=== PATIENT | female | born 1955 | race Caucasian/White ===

== ENCOUNTER 2017-01-19 10:25 | Inpatient (IN) ==
[2017-01-19] MEDS ORDERED: TYLENOL PO PRN (10:48)
[2017-01-19] MEDS ORDERED: NITROSTAT SL PRN (10:48)
[2017-01-19] MEDS ORDERED: ATROPINE SULFATE PFS IVP PRN (10:48)
[2017-01-19] MEDS ORDERED: VISTARIL INJ IM PRN (10:48)
[2017-01-19 11:13] LABS: ABG BASE EXCESS -3 (-2.0-2.0); ABG HCO3 20 (22.0-26.0); ABG PCO2 26.5 mmHg (35-45); ABG PH 7.485 (7.35-7.45); ABG TCO2 21 (22.0-28.0)
[2017-01-19 11:20] LABS: BASOPHILS % (AUTO) 0.3 % (0.0-3.0); EOSINOPHILS # (AUTO) 0.1 K/ul (0.0-0.7); EOSINOPHILS % (AUTO) 0.6 % (0.0-7.0); HEMATOCRIT 43.3 % (37.0-47.0); HEMOGLOBIN 15.3 g/dl (12.0-16.0); IMMATURE GRANULOCYTE % (AUTO) 0.8 % (0.0-5.0); LYMPHOCYTES # (AUTO) 1.9 K/uL (0.60-3.4); LYMPHOCYTES % (AUTO) 18.3 (10.0-50.0); MEAN CORPUSCULAR HEMOGLOBIN 32.1 pg (27.0-31.0); MEAN CORPUSCULAR HGB CONC 35.3 (31.8-35.4); MEAN CORPUSCULAR VOLUME 90.8 fl (81.0-99.0); MONOCYTES # (AUTO) 1.8 K/uL (0.4-2.0); MONOCYTES % (AUTO) 17.2 (0-10); NEUTROPHILS # (AUTO) 6.5 K/ul (2.0-6.9); NEUTROPHILS % (AUTO) 62.8; PLATELET COUNT 259 10^3/uL (140-440); RED BLOOD COUNT 4.77 10^6/ul (4.20-5.40); WHITE BLOOD COUNT 10.31 K/ul (4.6-10.2)
[2017-01-19 11:47] LABS: ALANINE AMINOTRANSFERASE 15 U/L (12-78); ALBUMIN 4.1 g/dL (3.4-5.0); ALBUMIN/GLOBULIN RATIO 1.05; ALKALINE PHOSPHATASE 104 U/L (53-141); ANION GAP 19.2; ASPARTATE AMINO TRANSFERASE 17 U/L (15-37); BILIRUBIN,TOTAL 0.39 mg/dL (0.00-1.20); BLOOD UREA NITROGEN 10 mg/dL (7-18); CALCIUM 9.6 mg/dL (8.2-10.2); CARBON DIOXIDE 22 mmol/L (23-31); CHLORIDE 96 mmol/L (98-107); CREATINE KINASE 65 U/L; GLUCOSE 96 mg/dL (82-115); MYOGLOBIN 42 ng/ml; POTASSIUM 4.2 mmol/L (3.5-5.10); SODIUM 133 mmol/L (136-145)
[2017-01-19 11:53] VITALS: BMI 34.0
[2017-01-19] MEDS: LOVENOX SUBCUT SCH (12:02)
--- NOTE | 2017-01-19 12:10 | CT ---
EXAM: CT chest without contrast. HISTORY: Bronchitis. Shortness of air. COMPARISON: Chest radiograph 06/29/2012. TECHNIQUE: Multiple axial images of the chest were obtained without intravenous contrast. Images w ere reformatted in the sagittal and coronal planes. FINDINGS: Evaluation for lymphadenopathy is limited due to lack of intravenous contrast. Multiple mediastinal lymph nodes are present measuring up to 1 cm short axis in the pretracheal and subcarina l regions on axial images 24 and 29. Heart size is normal. Atherosclerotic calcifications present. No pericardial effusion identified. The lungs are clear save for calcified granulomatous changes and areas of subsegmental atelectasis o r scarring in the right upper lobe. No pleural effusion or pneumothorax identified. Limited images of the upper abdomen are unremarkable. Degenerative changes seen in the spine. IMPRESSION: 1. No acute abnormality within the chest. 2. Nonspecific mediastinal lymphadenopathy. Consider follow-up CT in 3 to 6 months. 3. Evidence of prior granulomatous disease.
[2017-01-19 12:16] LABS: BILIRUBIN,URINE Negative (NEGATIVE); KETONES,URINE Negative (NEGATIVE); LEUKOCYTE ESTERASE ,URINE Trace (NEGATIVE); NITRITE,URINE Negative (NEGATIVE); PH,URINE 6.5 (5-9); PROTEIN,URINE Negative (NEGATIVE); URINE, BLOOD Negative (NEGATIVE)
[2017-01-19 12:23] LABS: ADD URINE MICROSCOPIC YES
[2017-01-19] MEDS: SODIUM CHLORIDE 1,000 ML IV SCH (12:30)
[2017-01-19] MEDS: ROCEPHIN 1 GM in SODIUM CHLORIDE 100 ML IV SCH (12:30)
[2017-01-19] MEDS: SOLU-MEDROL 125 MG IVP SCH ×3 (12:43→21:26)
[2017-01-19] MEDS: ZITHROMAX 500 MG in SODIUM CHLORIDE 250 ML IV SCH (13:29)
[2017-01-19] MEDS: DUONEB NEB SCH ×2 (14:08→19:20)
[2017-01-19] MEDS: MORPHINE 4 MG/ML SYRINGE IVP PRN ×2 (14:24→21:24)
[2017-01-19 15:08] LABS: FLU INTERNAL QC INTERNAL QC VALID; RAPID FLU A NEGATIVE (NEGATIVE); RAPID FLU B NEGATIVE (NEGATIVE)
[2017-01-19] MEDS: GLUCOPHAGE PO SCH (16:54)
[2017-01-19 20:24] LABS: CREATINE KINASE 80 U/L; MYOGLOBIN 36 ng/ml
[2017-01-19] MEDS ORDERED: NON-FORMULARY MEDICATION (Simvastatin [Simvastatin] 20 MG) PO SCH ×22 (21:00)
[2017-01-19] MEDS: HUMULIN R SUBCUT PRN (21:04)
[2017-01-19] MEDS: ZOCOR PO SCH (21:04)
[2017-01-20 05:05] LABS: BASOPHILS % (AUTO) 0.1 % (0.0-3.0); HEMATOCRIT 41.3 % (37.0-47.0); HEMOGLOBIN 14.3 g/dl (12.0-16.0); IMMATURE GRANULOCYTE % (AUTO) 0.9 % (0.0-5.0); LYMPHOCYTES # (AUTO) 1.1 K/uL (0.60-3.4); LYMPHOCYTES % (AUTO) 14.6 (10.0-50.0); MEAN CORPUSCULAR HEMOGLOBIN 31.7 pg (27.0-31.0); MEAN CORPUSCULAR HGB CONC 34.6 (31.8-35.4); MEAN CORPUSCULAR VOLUME 91.6 fl (81.0-99.0); MONOCYTES # (AUTO) 0.3 K/uL (0.4-2.0); MONOCYTES % (AUTO) 4.2 (0-10); NEUTROPHILS % (AUTO) 80.2; PLATELET COUNT 263 10^3/uL (140-440); RED BLOOD COUNT 4.51 10^6/ul (4.20-5.40); WHITE BLOOD COUNT 7.45 K/ul (4.6-10.2)
[2017-01-20 05:28] LABS: ALBUMIN 3.7 g/dL (3.4-5.0); ANION GAP 16.5; BILIRUBIN,TOTAL 0.2 mg/dL (0.00-1.20); BUN/CREATININE RATIO 16.66; CALCIUM 9.3 mg/dL (8.2-10.2); CREATININE 0.84 mg/dL (0.60-1.30); POTASSIUM 4.5 mmol/L (3.5-5.10); TOTAL PROTEIN 7.4 g/dL (5.8-8.1)
[2017-01-20] MEDS: DUONEB NEB SCH ×4 (05:28→19:37)
[2017-01-20] MEDS: SOLU-MEDROL 125 MG IVP SCH ×3 (05:28→21:09)
[2017-01-20] MEDS: LASIX TAB PO SCH (05:31)
[2017-01-20] MEDS: MORPHINE 4 MG/ML SYRINGE IVP PRN ×4 (05:38→23:28)
[2017-01-20] MEDS: HUMULIN R SUBCUT PRN ×2 (05:58→21:29)
[2017-01-20] MEDS ORDERED: NON-FORMULARY MEDICATION (Buspirone Hcl [Buspirone Hcl] 5 MG) PO SCH (09:00)
[2017-01-20] MEDS ORDERED: LASIX ONE (09:50)
[2017-01-20] MEDS ORDERED: LASIX IVP STA (09:53)
[2017-01-20] MEDS: SPIRIVA IH SCH (09:54)
[2017-01-20] MEDS: ROCEPHIN 1 GM in SODIUM CHLORIDE 100 ML IV SCH (09:55)
[2017-01-20] MEDS: GLUCOPHAGE PO SCH ×2 (09:58→17:04)
[2017-01-20] MEDS: LOVENOX SUBCUT SCH (09:58)
[2017-01-20] MEDS: ZESTRIL PO SCH (09:58)
[2017-01-20] MEDS: ASPIRIN EC PO SCH (09:58)
[2017-01-20] MEDS: TENORMIN PO SCH (09:58)
[2017-01-20] MEDS: BUSPAR PO SCH (09:59)
[2017-01-20] MEDS: IMIPRAMINE HCL 10 MG PO SCH (10:00)
[2017-01-20] MEDS: SODIUM CHLORIDE 1,000 ML IV SCH (10:25)
[2017-01-20] MEDS: ZITHROMAX 500 MG in SODIUM CHLORIDE 250 ML IV SCH (11:00)
[2017-01-20] MEDS: ZOCOR PO SCH (21:08)
[2017-01-21 04:48] LABS: BASOPHILS % (AUTO) 0.1 % (0.0-3.0); HEMATOCRIT 38.5 % (37.0-47.0); HEMOGLOBIN 13.3 g/dl (12.0-16.0); LYMPHOCYTES # (AUTO) 1.4 K/uL (0.60-3.4); LYMPHOCYTES % (AUTO) 9.3 (10.0-50.0); MEAN CORPUSCULAR HEMOGLOBIN 31.7 pg (27.0-31.0); MEAN CORPUSCULAR HGB CONC 34.5 (31.8-35.4); MEAN CORPUSCULAR VOLUME 91.9 fl (81.0-99.0); MONOCYTES # (AUTO) 0.8 K/uL (0.4-2.0); MONOCYTES % (AUTO) 5.3 (0-10); NEUTROPHILS # (AUTO) 12.3 K/ul (2.0-6.9); NEUTROPHILS % (AUTO) 84.3; PLATELET COUNT 276 10^3/uL (140-440); RED BLOOD COUNT 4.19 10^6/ul (4.20-5.40); WHITE BLOOD COUNT 14.56 K/ul (4.6-10.2)
[2017-01-21] MEDS: DUONEB NEB SCH ×4 (05:06→20:50)
[2017-01-21 05:16] LABS: ALBUMIN 3.5 g/dL (3.4-5.0); ALBUMIN/GLOBULIN RATIO 1.17; ANION GAP 13.2; BILIRUBIN,TOTAL 0.16 mg/dL (0.00-1.20); BUN/CREATININE RATIO 15.73; CALCIUM 8.5 mg/dL (8.2-10.2); CREATININE 0.89 mg/dL (0.60-1.30); POTASSIUM 4.2 mmol/L (3.5-5.10); TOTAL PROTEIN 6.5 g/dL (5.8-8.1)
[2017-01-21] MEDS: SOLU-MEDROL 125 MG IVP SCH ×3 (05:32→20:17)
[2017-01-21] MEDS: LASIX TAB PO SCH (05:32)
[2017-01-21] MEDS: HUMULIN R SUBCUT PRN ×2 (06:02→17:11)
[2017-01-21] MEDS: MORPHINE 4 MG/ML SYRINGE IVP PRN ×4 (06:07→21:12)
[2017-01-21] MEDS: ASPIRIN EC PO SCH (08:52)
[2017-01-21] MEDS: ROCEPHIN 1 GM in SODIUM CHLORIDE 100 ML IV SCH (08:52)
[2017-01-21] MEDS: TENORMIN PO SCH (08:52)
[2017-01-21] MEDS: ZESTRIL PO SCH (08:52)
[2017-01-21] MEDS: SPIRIVA IH SCH (08:52)
[2017-01-21] MEDS: GLUCOPHAGE PO SCH ×2 (08:53→16:52)
[2017-01-21] MEDS: LOVENOX SUBCUT SCH (08:53)
[2017-01-21] MEDS: BUSPAR PO SCH (08:53)
[2017-01-21] MEDS: IMIPRAMINE HCL 10 MG PO SCH (08:54)
[2017-01-21] MEDS: ZITHROMAX 500 MG in SODIUM CHLORIDE 250 ML IV SCH (10:38)
--- NOTE | 2017-01-21 11:22 | PCM.PROG ---
Attending Provider: ATTENDING PROVIDER: Dr. KORTNEY CHARLES DATE OF SERVICE: 01/21/17 SUBJECTIVE: This 61 year old WHITE/ F was hospitalized 01/19/17. The patient states she is still coughing but is coughing up some green sputum. She states she feels okay today and states her cough is loose. The patient's blood pressure is still elevated. No complaints of headache or blurred vision. The patient has been up and about without any problems. REVIEW OF SYSTEMS: CONSTITUTIONAL: No fever, no chills. ENDOCRINE: No weight loss or weight gain. HEENT: No sinus drainage, no sore throat. CVS: Shortness of breath. No angina symptoms. No CHF symptoms. No palpitations. No atypical chest pain for CAD. RESPIRATORY: Cough and congestion. No hemoptysis. GI: No melena. No abdominal pain. No nausea, no vomiting. : No hematuria. No polyuria. SKIN: No rash. No wounds. MUSCULOSKELETAL: No pain. CHIEF NURSE: No blackout, no dizziness. No headache. No double vision. PSYCHIATRIC: Not anxious; no depression. No suicidal thoughts. No homicidal thoughts. PHYSICAL EXAMINATION: GENERAL: Lying in bed in no distress. VITAL SIGNS: Temperature 97.7 F, Pulse 76, Respiratory Rate 20, BP 160/86, Pulse Ox 92% HEENT: Normocephalic, atraumatic. Mucosa is dry, pallor positive. NECK: No JVP, no carotid bruit. No lymphadenopathy. CARDIAC: S1, S2, no S3. No murmur, gallop or regurgitation. LUNGS: Decreased entry with bilateral expiratory wheeze. ABDOMEN: Soft, non-tender. Bowel sounds active. No rigidity, guarding or CVA tenderness. EXTREMITIES: No clubbing, cyanosis or edema. NEUROLOGIC: Awake, alert and oriented x3. LYMPHATIC: No palpable lymph nodes SKIN: Not dry. Intact. MUSCULOSKELETAL: No joint swelling. LAB REVIEW: 01/21/17 04:46 01/21/17 04:46 01/21/17 04:46: WBC 14.56 H D, RBC 4.19 L, Hgb 13.3, Hct 38.5, MCV 91.9, MCH 31.7 H, MCHC 34.5, RDW Coeff of Hansel 13.8, Plt Count 276, Immature Gran % (Auto) 1.0, Neut % (Auto) 84.3, Lymph % (Auto) 9.3 L, [place] % (Auto) 5.3, Eos % (Auto) 0.0, Baso % (Auto) 0.1, Immature Gran # (Auto) 0.1, Neut # 12.3 H, Lymph # 1.4, [place] # 0.8, Eos # 0.0, Baso # 0.0, Sodium 136, Potassium 4.2, Chloride 102, Carbon Dioxide 25, Anion Gap 13.2, BUN 14, Creatinine 0.89, Estimated GFR (MDRD ) 64.00, BUN/Creatinine Ratio 15.73, Glucose 143 H, Calcium 8.5, Total Bilirubin 0.16, AST 15, ALT 12, Alkaline Phosphatase 74, Total Protein 6.5, Albumin 3.5, Globulin 3.0, Albumin/Globulin Ratio 1.17 ASSESSMENT: 1. COPD exacerbation secondary to bronchitis. 2. Hypertension uncontrolled. 3. COPD. 4. History of carotid stenosis with carotid endarterectomy. 5. Nicotine use. 6. Osteoarthritis. 7. DJD spine. PLAN: 1. Continue Rocephin, Duonebs. 2. Decrease IV steroids to 80 mg q.8hr 3. Echocardiogram due to hypertension. 4. Renal ultrasound and Doppler flow study. Plan and coordination of the patient's care discussed in the presence of Singer Back Tender and nurse. CONDITION: Stable SCRIBED BY: [employer] Personal [employer]ing Representative scribed while in presence of service performed by Dr. KORTNEY CHARLES on 01/21/17 ([id number])
--- NOTE | 2017-01-21 12:40 | US ---
EXAM: Renal artery Doppler ultrasound. HISTORY: Hypertension COMPARISON: None TECHNIQUE: Renal artery Doppler ultrasound was performed. FINDINGS: The majority of the bilateral renal arteries are obscured due to shadowing artifact and patient body habitus and evaluation for renal artery stenosis is nondiagnostic. Aorta is obscured. Right and left renal veins are patent. Arcuate artery resistive index is 0.74 on the right and 0.7 4 on the left, within normal limits. IMPRESSION: Majority of bilateral renal arteries are obscured due to shadowing artifact and evaluation for renal artery stenosis is nondiagnostic.
--- NOTE | 2017-01-21 12:40 | US ---
Examination: Buenrostro-scale and color Doppler real-time ultrasonographic evaluation of the kidneys and urinary bladder. Comparison: None available. Reason for study: Hypertension. FINDINGS: Limited ultrasonographic evaluation of the kidneys and urinary bladder. This is a technic ally limited examination secondary to patient body habitus and overlying bowel gas. The right kidney measures approximately 7.51 x 4.09 x 3.19 cm. The cortical echotexture is not well imaged secondary to patient body habitus. There is no marnie hydronephrosis or large nephrolithiasi s. The left kidney is not well seen secondary to body habitus. The bladder measures 6.47 x 8.02 x 7.92 cm without obvious bladder wall thickening. The ureteral je ts were not visualized. Impression: 1. Technically limited evaluation of the kidneys and urinary bladder secondary to the patient's bod y habitus and overlying bowel gas. 2. No marnie hydronephrosis or nephrolithiasis is seen in the right kidney. 3. The left kidney was not well seen. If clinical concern exists for renal pathology, further imagin g may be performed.
[2017-01-21] MEDS: ZOFRAN 4 MG/2 ML IVP PRN (14:47)
[2017-01-21 14:56] LABS: AMYLASE 19 U/L (25-115)
[2017-01-21 14:58] LABS: LIPASE 6 U/L (8-78)
--- NOTE | 2017-01-21 15:23 | CT ---
EXAM: CT of the abdomen pelvis without contrast History: Abdominal pain and nausea. Comparison: None available. Technique: Multiplanar CT images through the abdomen pelvis were obtained without the administratio n of IV contrast Findings: Calcified granulomas seen within the right middle lobe. Subsegmental atelectasis seen at the lung bases. No acute osseous abnormalities. No discrete gallstones identified by CT. Atherosclerotic vascular calcifications. No focal liver o r splenic lesions. No peripancreatic inflammation. Adrenal glands are unremarkable. Punctate bila teral nonobstructing renal calculi versus vascular calcifications. No ureteral calculi. No free ai r. No ascites. Foci of subcutaneous edema and air within the left anterior abdominal wall probably from injections. Atrophic uterus. Coarse calcifications seen within the left ovary and there may be a small left ovarian cysts. No perirectal inflammation. Nonspecific bilateral perinephric strand ing. Tiny fat containing left inguinal hernia. Impression: 1. Nonspecific bilateral perinephric stranding. 2. Punctate nonobstructing bilateral renal calculi versus renal arterial vascular calcifications. 3. Atherosclerotic vascular disease. 4. Coarse calcification within the left ovary and possible small left ovarian cyst. Consider corre lation with non emergent pelvic ultrasound. 5. Foci of subcutaneous edema and air within the left anterior abdominal wall probably from injecti ons.
[2017-01-21] MEDS: ZOCOR PO SCH (20:13)
[2017-01-22] MEDS: ZOFRAN 4 MG/2 ML IVP PRN (02:48)
[2017-01-22] MEDS: MORPHINE 4 MG/ML SYRINGE IVP PRN (02:50)
[2017-01-22 05:03] LABS: BASOPHILS % (AUTO) 0.3 % (0.0-3.0); HEMATOCRIT 40.2 % (37.0-47.0); HEMOGLOBIN 13.7 g/dl (12.0-16.0); LYMPHOCYTES # (AUTO) 1.4 K/uL (0.60-3.4); LYMPHOCYTES % (AUTO) 9.9 (10.0-50.0); MEAN CORPUSCULAR HEMOGLOBIN 31.3 pg (27.0-31.0); MEAN CORPUSCULAR HGB CONC 34.1 (31.8-35.4); MEAN CORPUSCULAR VOLUME 91.8 fl (81.0-99.0); MONOCYTES # (AUTO) 0.9 K/uL (0.4-2.0); MONOCYTES % (AUTO) 6.7 (0-10); NEUTROPHILS # (AUTO) 11.1 K/ul (2.0-6.9); NEUTROPHILS % (AUTO) 81.1; PLATELET COUNT 310 10^3/uL (140-440); RED BLOOD COUNT 4.38 10^6/ul (4.20-5.40)
[2017-01-22] MEDS: DUONEB NEB SCH ×2 (05:13→10:12)
[2017-01-22] MEDS: SOLU-MEDROL 125 MG IVP SCH ×2 (05:28→12:41)
[2017-01-22] MEDS: LASIX TAB PO SCH (05:30)
[2017-01-22 05:37] LABS: ALBUMIN 3.7 g/dL (3.4-5.0); ALBUMIN/GLOBULIN RATIO 1.16; ANION GAP 15.9; BILIRUBIN,TOTAL 0.16 mg/dL (0.00-1.20); BUN/CREATININE RATIO 16.12; CALCIUM 8.5 mg/dL (8.2-10.2); CREATININE 0.93 mg/dL (0.60-1.30); POTASSIUM 3.9 mmol/L (3.5-5.10); TOTAL PROTEIN 6.9 g/dL (5.8-8.1)
[2017-01-22] MEDS: HUMULIN R SUBCUT PRN (06:25)
[2017-01-22] MEDS ORDERED: TORADOL IVP PRN (08:19)
[2017-01-22] MEDS: LOVENOX SUBCUT SCH (08:21)
[2017-01-22] MEDS: SPIRIVA IH SCH (08:21)
[2017-01-22] MEDS: ROCEPHIN 1 GM in SODIUM CHLORIDE 100 ML IV SCH (08:21)
[2017-01-22] MEDS: BUSPAR PO SCH (08:22)
[2017-01-22] MEDS: TENORMIN PO SCH (08:22)
[2017-01-22] MEDS: ASPIRIN EC PO SCH (08:22)
[2017-01-22] MEDS: ZESTRIL PO SCH (08:22)
[2017-01-22] MEDS: GLUCOPHAGE PO SCH (08:22)
[2017-01-22] MEDS: IMIPRAMINE HCL 10 MG PO SCH (08:23)
[2017-01-22] MEDS ORDERED: MUCINEX PO SCH (09:00)
[2017-01-22 10:20] VITALS: BP 171/82; TEMP 97.2
--- NOTE | 2017-01-22 12:06 | CM.DICTOOL ---
ADMISSION: 01/19/17 10:25 DISCHARGE: January 22, 2017 DATE OF SERVICE: 01/22/17 FINAL DIAGNOSIS COPD exacerbation Acute Bronchitis Hypertension Continued nicotine abuse Sleep apnea, C-pap Depression Osteoarthritis DJD spine History of Carotid Endarterectomy History of Left Breast Lumpectomy LAST VITALS Temp Pulse Resp BP Pulse Ox 97.2 F L 65 20 171/82 H 93 L 01/22/17 10:00 01/22/17 10:00 01/22/17 10:00 01/22/17 10:00 01/22/17 10:00 ACTIVE HOME MEDICATIONS Aspirin (Aspirin Ec) 325 mg PO DAILYWM [facility] Last Admin: 01/22/17 08:22 Dose: 325 mg Atenolol (Tenormin) 25 mg PO DAILY [facility] Last Admin: 01/22/17 08:22 Dose: 25 mg Buspirone HCl (Buspar) 5 mg PO DAILY [facility] Last Admin: 01/22/17 08:22 Dose: 5 mg Furosemide (Lasix Tab) 20 mg PO QDAC [facility] Last Admin: 01/22/17 05:30 Dose: 20 mg Lisinopril (Zestril) 40 mg PO DAILY [facility] Last Admin: 01/22/17 08:22 Dose: 40 mg Metformin HCl (Glucophage) 500 mg PO BIDWM [facility] Last Admin: 01/22/17 08:22 Dose: 500 mg Non-Formulary Medication (Imipramine Hcl [Imipramine Hcl]) 10 mg PO DAILY [facility] Last Admin: 01/22/17 08:23 Dose: Not Given Simvastatin (Zocor) 20 mg PO BEDTIME [facility] Last Admin: 01/21/17 20:13 Dose: 20 mg Tiotropium [place] (Spiriva) 1 cap IH DAILY [facility] Last Admin: 01/22/17 08:21 Dose: 1 cap ALLERGIES varenicline [From Chantix] Adverse Reaction (Mild, Verified 01/19/17 11:05) Nausea, Vomiting NEW PRESCRIPTIONS: Keflex 500 mg BID for 5 days Medrol Dose pack take as directed Mucinex 600 mg BID Ventolin HFA 1 puff QID prn wheezing or shortness of air SMOKING: Adivsed to stop smoking DISEASE SPECIFIC EDUCATION: COPD Bronchitis Prescriptions, including use of steroids Oxygen use Appointments LAB REVIEW: 01/22/17 04:59 01/22/17 04:59 01/22/17 04:59: WBC 13.70 H, RBC 4.38, Hgb 13.7, Hct 40.2, MCV 91.8, MCH 31.3 H , MCHC 34.1, RDW Coeff of Hansel 13.9, Plt Count 310, Immature Gran % (Auto) 2.0, Neut % (Auto) 81.1, Lymph % (Auto) 9.9 L, [place] % (Auto) 6.7, Eos % (Auto) 0.0, Baso % (Auto) 0.3, Immature Gran # (Auto) 0.3, Neut # 11.1 H, Lymph # 1.4, [place] # 0.9, Eos # 0.0, Baso # 0.0, Sodium 138, Potassium 3.9, Chloride 102, Carbon Dioxide 24, Anion Gap 15.9, BUN 15, Creatinine 0.93, Estimated GFR (MDRD) 61.00 , BUN/Creatinine Ratio 16.12, Glucose 143 H, Calcium 8.5, Total Bilirubin 0.16, AST 13 L, ALT 12, Alkaline Phosphatase 72, Total Protein 6.9, Albumin 3.7, Globulin 3.2, Albumin/Globulin Ratio 1.16 01/21/17 04:30: Amylase 19 L, Lipase 6 L PLAN: Discharge Home Diet: Consistent Carbohydrates Activity: Gradually Resume as toleratead No medication changes Home oxygen has been arranged thru [facility] in [place], [place] for use continuously at 2 liters per cannula. Appointments: Dr. Rueda on January 27 at 10:15 am Outpatient Pulmonary Function Test on January 28 at 1 pm Mrs. Rollins is alert and oriented x 3. She is independent with all activities of daily living and is ambulatory without use of assistive device. Meal intakes are fair at 50-75%. No reports of abdominal pain or nausea. The patient demonstrated a need for continuous oxygen due to oxygen saturation of 85 % with exertion. Home oxygen has been arranged thru [facility] for the patient to use on a continuous basis at 2 liters per cannula. Skin is in good condition and without open areas, rashes or irritations. Eder Rueda MD
--- NOTE | 2017-01-22 15:42 | PN ---
DATE OF SERVICE: 01/20/17 SUBJECTIVE: The patient was admitted from the office yesterday for the COPD exacerbation and bronchitis. CT of the chest was negative for the pneumonia. BNP is negative. The patient is lying in the bed and still complains about the shortness of breath, getting yellow/green phlegm. The patient is anxious, otherwise the blood pressure has been elevated but no headache. REVIEW OF SYSTEMS: CONSTITUTIONAL: No fever, no chills. HEENT: Normal. ENDOCRINE: No weight gain, no weight loss. CVS: No angina symptoms. No CHF symptoms. No palpitations. No atypical chest pain for CAD. No shortness of breath. No PND, no orthopnea. RESPIRATORY: No cough, no hemoptysis. GI: No nausea, no vomiting. No abdominal pain. : No hematuria. No polyuria. MUSCULOSKELETAL:. No joint swelling. PSYCHIATRIC: Not anxious. No depression. No suicidal thoughts. No homicidal thoughts. SKIN: Intact. No rash. PHYSICAL EXAMINATION: V/S: blood pressure 177/89, respiratory rate 20, heart rate 70 and temperature 97.0 and saturation 94%. HEENT: Normocephalic, atraumatic. Ears, eyes, nose and throat normal. Mucosa dry. NECK: Supple. No JVD, no carotid bruit. No lymphadenopathy. LUNGS: Decreased and basilar crackles. No rales or rhonchi. HEART: S1, S2 normal. No S3. No murmur, gallop or regurgitation. ABDOMEN: Soft, nontender. Bowel sounds active. No rigidity. No rebound or guarding. No CVA tenderness. EXTREMITIES: No clubbing, cyanosis or pedal edema. MUSCULOSKELETAL: No joint swelling. NEUROLOGIC: Awake, alert, oriented times three. No focal deficit. LYMPHATIC: No lymph nodes palpable. SKIN: Intact. LABS: WBC 7.45, hgb 14.3, hct 41.3, plt count 263, sodium 134, potassium 4.5, chloride 102, bibcarb 210, BUN 14, creatinine 0.84. ASSESSMENT: 1. COPD exacerbation secondary to the bronchitis 2. Hypertension, uncontrolled 3. History of TIA 4. Carotid stenosis 5. Diabetes 6. Dyslipidemia 7. Obesity 8. Sleep apnea on CPAP PLAN: 1. Continue the Rocephin 2. Azithromycin 3. Stop the IV fluids 4. Lasix 20mg IV push today. TIME SPENT: More than 30 minutes MTDD
--- NOTE | 2017-01-23 08:33 | ECHO2D ---
Date of Exam: 01/22/17 Ordering Physician: XIOMARA MCCONNELL Reason for Echo: HYPERTENSION, DYSLIPIDEMIA, ASHD M-Mode Normal Adult Results LV Dimensions Normal Adult Results AoV Opening excursions >1.6 1.2 LVEDD-base- 3.5-5.8 4.3 Ao root dimensions 2.0-3.7 3.2 LVESD-base- 3.1-4.6 L. Atrium dimensions 1.9-3.8 4.3 Post. Wall thickness 0.8-1.1 1.3 IV septum (thickness) 0.7-1.2 1.4 Post. Wall excursion 0.72-1.3 NORMAL Septal motion NORMAL Systolic motion R. Ventricular cavity 1.5-2.0 NORMAL LVEF 60% 64% Paradoxical septal wall motion NORMAL 2-D : CALCIFIC MITRAL VALVE ANNULUS--CALCIFIC AORTIC VALVES WITH STENOSIS, NORMAL LEFT VENTRICULAR CONTRACTILITY--ENLARGED LEFT ATRIAL CAVITY, NORMAL LEFT VENTRICLE SIZE, NO EFFUSION, NO THROMBUS M-MODE: MV: CALCIFIC MITRAL VALVE ANNULUS AV: CALCIFIC AORTIC STENOSIS MODERATE TV: NORMAL PV: NORMAL CHAMBER SIZE: ENLARGED LEFT ATRIAL CAVITY WALL MOTION: NORMAL PERICARDIUM: NORMAL INTERPRETATION: 1. LEFT VENTRICULAR HYPERTROPHY WITH ENLARGED LEFT ATRIAL CAVITY 2. NORMAL LEFT VENTRICULAR CONTRACTILITY 3. CALCIFIC MITRAL VALVE ANNULUS 4. CALCIFIC AORTIC STENOSIS- MODERATE MTDD
--- NOTE | 2017-01-29 13:43 | PN ---
DATE OF SERVICE: 01/22/17 SUBJECTIVE: The patient was admitted with the upper respiratory infection and bronchitis and patient had drop in her saturations below 90 when she is walking but with the room air like 93-94% but minimal exertion is dropping to the 85%. Will evaluate her for the home oxygen. Dr. Emmanuel did the echocardiogram. LVH with questionable aortic stenosis for which we are scheduling her for the Color Doppler otherwise the patient is going out and smoking, shortness of breath is better. REVIEW OF SYSTEMS: CONSTITUTIONAL: No fever, no chills. HEENT: Normal. ENDOCRINE: No weight gain, no weight loss. CVS: No angina symptoms. No CHF symptoms. No palpitations. No atypical chest pain for CAD. No shortness of breath. No PND, no orthopnea. RESPIRATORY: No cough, no hemoptysis. GI: No nausea, no vomiting. No abdominal pain. : No hematuria. No polyuria. MUSCULOSKELETAL:. No joint swelling. PSYCHIATRIC: Not anxious. No depression. No suicidal thoughts. No homicidal thoughts. SKIN: Intact. No rash. PHYSICAL EXAMINATION: V/S: Blood pressure 169/93, respiratory rate 20, heart rate 68, temperature 97.4 and saturation 94. HEENT: Normocephalic, atraumatic. Ears, eyes, nose and throat normal. Mucosa dry. NECK: Supple. No JVD, no carotid bruit. No lymphadenopathy. LUNGS: Decreased and some crackles. No rales or rhonchi. HEART: S1, S2 normal. No S3. No murmur, gallop or regurgitation. ABDOMEN: Soft, nontender. Bowel sounds active. No rigidity. No rebound or guarding. No CVA tenderness. EXTREMITIES: No clubbing, cyanosis or pedal edema. MUSCULOSKELETAL: No joint swelling. NEUROLOGIC: Awake, alert, oriented times three. No focal deficit. LYMPHATIC: No lymph nodes palpable. SKIN: Intact. LABS: WBC 13.70, hgb 13.7, hct 40.2, plt count 310, sodium 138, potassium 3.9, chloride 102, bicarb 24, BUN 15, creatinine 0.193 and sugars 143. ASSESSMENT: 1. Upper respiratory infection 2. COPD exacerbation 3. Mild aortic stenosis 4. History of hypertension 5. Dyslipidemia 6. Diabetes Mellitus 7. Carotid artery stenosis PLAN: 1. Evaluate patient for the oxygen 2. Out of bed to chair 3. Activity as tolerated 4. Possible discharge 5. Lifestyle modification weight loss 6. Stop smoking and offered help and she says that she promises that she will quit by herself. 7. Will see her back in the office within 5-7 days. Will follow the patient as outpatient. TIME SPENT: More than 30 minutes MTDD
--- NOTE | 2017-02-04 11:15 | DS ---
DATE OF SERVICE: 01/22/17 FINAL DIAGNOSIS: 1. COPD exacerbation secondary to the acute bronchitis 2. Hypoxemia secondary to the COPD exacerbation 3. Hypertension 4. Continued nicotine use, the patient kept going despite the hospitalizations 5. Sleep apnea on CPAP 6. Depression 7. Osteoarthritis 8. DJD 9. History of Carotid endarterectomy 10.History of left breast lumpectomy LAST VITALS: Blood pressure 168/82m, respiratory rate 20, heart rate 65, temperature 97.2 and saturation 93%. DISCHARGE INSTRUCTIONS: Discharge the patient home. Continue the rest of the home medications. MEDICATIONS AT DISCHARGE: Aspirin Tenormin Buspar Lasix Zestril Glucophage Imipramine Zocor Spiriva NEW PRESCRIPTIONS: Keflex 500mg twice a day for five days Medrol Dose-Dionicio as directed Mucinex 600mg twice a day Ventolin HFA one puff four times a day PRN wheezing or shortness of breathing. DIET INSTRUCTIONS: Consistent Carbohydrates ACTIVITY: Gradually Resume as tolerated SMOKING: Strictly advised to quit smoking, offered help. Patient promises she will eventually quit the smoking. Smoking and the lung cancer risk and coronary artery disease and verbalized understanding. DISEASE SPECIFIC EDUCATION: COPD Bronchitis Smoking been discussed with the patient HOSPITAL COURSE: Manju Rollins who is a 61 year old female with history of COPD and the smoking came to the office complaining of shortness of breath, cough and congestion. I saw her in the office and the patient was some hypoxemia and with the saturation of 90% and elevated blood pressure. At that time the patient is admitted from the office to the hospital. CBC and CMP were normal. ABG showed the pH 7.48, pCO2 26.5, pO2 69 on the room air. She was started on the Rocephin and Azithromycin, DUO NEBS and Solu-Medrol Q [address] of the chest done which did not show any acute pathology. Nonspecific mediastinal lymphadenopathy. Consider followup and evidence of prior granulomatous disease. The patient's blood pressure was elevated and at that time a renal ultrasound was done and did not show any questionable obstruction. The patient has some vomiting and nausea for which a CT of abdomen and pelvis was done. It showed the nonspecific perinephric stranding, punctate nonobstructing bilateral renal calculi versus renal arterial vascular calcifications within the ovary. The patient was given Lovenox for the DVT prophylaxis. The patient was up and about still going out and smoking. As patient was doing fine and did not have any complication that patient was evaluated for the oxygen, the patient was qualified with the 5 minute and the oxygen was 85%. The patient was willing to use the oxygen. The patient said that the oxygen was definitely helping her when she was in the hospital. Smoking and highly inflammable state of oxygen been discussed and verbalized understanding. TIME SPENT: More than 45 minutes today. EM
== END 2017-01-22 13:15 | disposition home or self-care (01) | DRG 202 ==
LOC: MEDSURG B 10:25
PROVIDERS: ADMIT Emergency Medicine; ATTEND Emergency Medicine
DX: J20.9 Acute bronchitis, unspecified (principal); J44.1 Chronic obstructive pulmonary disease with (acute) exacerbation; J44.0 Chronic obstructive pulmonary disease with (acute) lower respiratory infection; I51.7 Cardiomegaly; R09.02 Hypoxemia; I35.0 Nonrheumatic aortic (valve) stenosis; R06.02 Shortness of breath; I10 Essential (primary) hypertension; E11.9 Type 2 diabetes mellitus without complications; E78.5 Hyperlipidemia, unspecified; E66.9 Obesity, unspecified; G47.30 Sleep apnea, unspecified; F32.9 Major depressive disorder, single episode, unspecified; M19.90 Unspecified osteoarthritis, unspecified site; F17.200 Nicotine dependence, unspecified, uncomplicated; R11.2 Nausea with vomiting, unspecified; Z86.73 Personal history of transient ischemic attack (TIA), and cerebral infarction without residual deficits; Z99.89 Dependence on other enabling machines and devices; Z79.84 Long term (current) use of oral hypoglycemic drugs; Z79.899 Other long term (current) drug therapy
CPT/HCPCS: 36415; 76770; 80053; 81001; 82150; 82550; 82803; 82962; 83605; 83690; 83874; 83880; 84484; 85025; 87070; 87804; 93005; 93010; 94640; 94761

== ENCOUNTER 2017-01-28 13:07 | Outpatient (CLI) | END 2017-01-28 13:08 | disposition home or self-care (01) | LOC: CAR 13:07 | PROVIDERS: ATTEND Emergency Medicine | DX: R06.02 Shortness of breath (principal); J44.9 Chronic obstructive pulmonary disease, unspecified ==

== ENCOUNTER 2017-05-05 13:10 | Outpatient (CLI) ==
[2017-05-05 13:37] LABS: BASOPHILS % (AUTO) 0.3 % (0.0-3.0); EOSINOPHILS # (AUTO) 0.1 K/ul (0.0-0.7); EOSINOPHILS % (AUTO) 0.8 % (0.0-7.0); HEMATOCRIT 38.5 % (37.0-47.0); HEMOGLOBIN 13.2 g/dl (12.0-16.0); IMMATURE GRANULOCYTE % (AUTO) 0.6 % (0.0-5.0); LYMPHOCYTES # (AUTO) 2.6 K/uL (0.60-3.4); LYMPHOCYTES % (AUTO) 26.2 (10.0-50.0); MEAN CORPUSCULAR HEMOGLOBIN 31.5 pg (27.0-31.0); MEAN CORPUSCULAR HGB CONC 34.3 (31.8-35.4); MEAN CORPUSCULAR VOLUME 91.9 fl (81.0-99.0); MONOCYTES # (AUTO) 1.1 K/uL (0.4-2.0); NEUTROPHILS % (AUTO) 61.1; PLATELET COUNT 284 10^3/uL (140-440); RED BLOOD COUNT 4.19 10^6/ul (4.20-5.40); WHITE BLOOD COUNT 9.81 K/ul (4.6-10.2)
[2017-05-05 14:14] LABS: ALBUMIN 3.8 g/dL (3.4-5.0); ALBUMIN/GLOBULIN RATIO 1.27; ANION GAP 17.2; BILIRUBIN,TOTAL 0.17 mg/dL (0.00-1.20); BUN/CREATININE RATIO 6.41; CALCIUM 8.8 mg/dL (8.2-10.2); CHOL/HDL RATIO 3.1 (4.5-5.5); CREATININE 0.78 mg/dL (0.60-1.30); POTASSIUM 4.2 mmol/L (3.5-5.10); TOTAL PROTEIN 6.8 g/dL (5.8-8.1)
== END 2017-05-05 13:11 | disposition home or self-care (01) ==
LOC: LAB 13:10
PROVIDERS: ATTEND Internal Medicine
DX: E78.5 Hyperlipidemia, unspecified (principal); J44.9 Chronic obstructive pulmonary disease, unspecified; E11.9 Type 2 diabetes mellitus without complications; E66.9 Obesity, unspecified; I10 Essential (primary) hypertension
CPT/HCPCS: 36415; 80053; 80061; 82607; 83036; 84443; 85025

== ENCOUNTER 2017-06-18 13:07 | Outpatient (CLI) ==
--- NOTE | 2017-06-18 13:59 | US ---
EXAM: Ultrasound bilateral carotid duplex HISTORY: Dizziness and giddiness COMPARISON: Carotid Doppler 07/22/2016 and multiple priors TECHNIQUE: Sonographic and color Doppler evaluation of the carotids were performed. FINDINGS: The right carotid is patent in appearance with moderate atherosclerotic plaque visualized. The right ICA peak systolic velocity measures 80 cm/sec which is normal. The ICA / CCA peak systolic velocity ratio is 1.1 and ICA end-diastolic velocity is 30 cm/sec. The left carotid is very poorly evaluated due to extensive calcific atherosclerotic shadowing. The left ICA peak systolic velocity measures 140 cm/sec which is elevated. The left ICA / CCA peak systolic velocity ratio is 1.6 and ICA end-diastolic velocity is 30 cm/sec. Vertebral arteries demonstrate antegrade flow bilaterally. IMPRESSION: 1. Extensive calcific atherosclerotic disease in the left carotid limits the sonographic evaluation . Doppler velocity is elevated consistent with moderate stenosis. 2. Moderate right atherosclerotic disease without elevated Doppler velocity to suggest stenosis.
== END 2017-06-18 13:08 | disposition home or self-care (01) ==
LOC: RAD 13:07
PROVIDERS: ATTEND Emergency Medicine
DX: R42 Dizziness and giddiness (principal)

== ENCOUNTER 2017-09-22 14:18 | Outpatient (CLI) ==
[2017-09-22 15:16] LABS: BILIRUBIN,URINE Negative (NEGATIVE); KETONES,URINE Negative (NEGATIVE); LEUKOCYTE ESTERASE ,URINE Negative (NEGATIVE); NITRITE,URINE Negative (NEGATIVE); PROTEIN,URINE Negative (NEGATIVE); URINE, BLOOD Negative (NEGATIVE)
[2017-09-22 15:18] LABS: ADD URINE MICROSCOPIC NO
--- NOTE | 2017-09-22 15:26 | MRI ---
EXAM: MRI brain without IV contrast. DATE: 22 September 2017. HISTORY: Amnesia. TECHNIQUE: Sagittal T1W, axial T2W, axial FLAIR, axial T1W, axial DWI, and coronal T2W GRE sequences of the brain were obtained using 1.5 Triny magnet. No IV contrast. COMPARISON: MRI brain 08 October 2012. FINDINGS: The ventricles, cisterns, and subarachnoid spaces are minor/mildly prominent due to involu tional change. No midline shift, mass effect or abnormal extra-axial fluid collection is apparent. No acute infarct, hemorrhage or intra-axial neoplasm is identified. S A 4.4 x 5.6 mm T2W/T1W interme diate signal focus along the posterior margin of the right petrous bone, just lateral to the right in ternal auditory canal is similar to previous MRI. mall, confluent rim of T2W/FLAIR hyperintensity is observed in the white matter abutting each lateral ventricle. Multiple 2-12 mm, T2W/FLAIR bright fo ci are scattered within the romero radiata, centrum semiovale and subcortical white matter bilaterall y. A few 2-3 mm, T2W/FLAIR bright foci are demonstrated in the kasi. The peres - white matter differ entiation is normal. The 7th/8th cranial nerve complexes, cerebellopontine angles, and visible cervi irene spinal cord are normal. There is no cerebellar tonsillar ectopia. The pituitary gland is small in size, with CSF filling much of the pituitary fossa. Corpus callosum is normal in size and configu ration. Flow voids are present in the major intracranial arteries and in the dural venous sinuses. No aneurysm, AVM or dural venous sinus thrombosis is apparent. Appearance of the lens of each eye winter ggests prior cataract surgery. No other orbit abnormality is identified. A few right mastoid air ce lls have reticular pattern T2W bright, T1W intermediate signal. Left mastoid air cells are unremarka ble. There is no acute sinusitis. A 5 mm T2W/T1W intermediate signal focus in the right ethmoid air cell is likely an small retention cyst or polyp. No neck mass or lymphadenopathy is detected. No ca lvarial neoplasm or acute fracture is evident. Minor posterior disc bulge at C3-4 may cause mild cent ral canal stenosis. IMPRESSIONS: 1. No acute infarct, hemorrhage, neoplasm or hydrocephalus. 2. Mild/moderate cerebral and minor pontine small vessel disease. 3. Mild cerebral and minor cerebellar atrophy. 4. Mild right mastoid effusion vs mastoiditis. 5. 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 6. Small, stable meningioma abutting the right petrous ridge.
== END 2017-09-22 14:19 | disposition home or self-care (01) ==
LOC: RAD 14:18
PROVIDERS: ATTEND Emergency Medicine
DX: R41.3 Other amnesia (principal); R35.0 Frequency of micturition
CPT/HCPCS: 81001

== ENCOUNTER 2017-10-28 16:19 | Outpatient (CLI) | END 2017-10-28 16:20 | disposition home or self-care (01) | LOC: LAB 16:19 | PROVIDERS: ATTEND Emergency Medicine | DX: J10.1 Influenza due to other identified influenza virus with other respiratory manifestations (principal) | CPT/HCPCS: 87502 ==

== ENCOUNTER 2017-11-02 12:27 | Inpatient (IN) ==
[2017-11-02 13:35] VITALS: BMI 32.7
--- NOTE | 2017-11-02 16:35 | CT ---
EXAM: CT of the chest without contrast History: Short of breath Comparison: Chest CT 01/19/2017 Technique: Multiplanar CT images through the thorax were obtained without the administration of IV c ontrast Findings: Atherosclerotic vascular calcifications. No axillary adenopathy. No pathologically enlarg ed mediastinal lymph nodes. Evaluation for hilar lymph nodes is limited due to the lack of contrast administration but no bulky hilar adenopathy is seen. Heart size is normal. No pericardial effusion . Great vessels are unremarkable. Calcified granuloma again seen within the right middle lobe. The re is bronchial wall thickening and mucus plugging within the lower lungs with mild bibasilar lung in filtrates. No appreciable pleural fluid and no pneumothorax. No suspicious lung masses or lung nodu les. Minimal ground-glass infiltrate within the right upper lobe. Within the visualized upper abdomen, no acute findings. No acute osseous abnormalities. Impression: 1. Bronchial wall thickening and mucus plugging within the lower lungs with mild bibasilar lung infil trates compatible with infectious or inflammatory process. 2. Minimal ground-glass infiltrate within the right upper lobe compatible with infectious or inflamm atory process.
[2017-11-02] MEDS: LOVENOX SUBCUT SCH (16:47)
[2017-11-02] MEDS: SOLU-MEDROL 125 MG IVP SCH ×2 (16:47→20:31)
[2017-11-02] MEDS: ROCEPHIN 1 GM in SODIUM CHLORIDE 50 ML IV SCH (16:47)
[2017-11-02] MEDS ORDERED: BUSPIRONE HCL PO SCH (17:46)
[2017-11-02] MEDS ORDERED: IMIPRAMINE HCL PO SCH (17:46)
[2017-11-02] MEDS: DUONEB NEB SCH ×2 (18:08→23:26)
[2017-11-02] MEDS: GLUCOPHAGE PO SCH (18:40)
[2017-11-02] MEDS: PREDNISONE PO SCH (20:40)
[2017-11-02] MEDS: TAMIFLU PO SCH (20:40)
[2017-11-03] MEDS: DUONEB NEB SCH ×4 (04:19→23:16)
[2017-11-03] MEDS: LASIX TAB PO SCH (05:36)
[2017-11-03] MEDS ORDERED: SPIRIVA IH SCH (09:00)
[2017-11-03] MEDS ORDERED: COMBIVENT RESPIMAT INHAL SPRAY IH SCH (09:00)
[2017-11-03] MEDS ORDERED: NON-FORMULARY MEDICATION (Simvastatin [Simvastatin] 20 MG) PO SCH (09:00)
[2017-11-03] MEDS ORDERED: NON-FORMULARY MEDICATION (Vitamin B Complex [Vitamin B Complex] 1 EACH) PO SCH (09:00)
[2017-11-03] MEDS: ROCEPHIN 1 GM in SODIUM CHLORIDE 50 ML IV SCH (09:19)
[2017-11-03] MEDS: SPIRIVA IH SCH (09:22)
[2017-11-03] MEDS: ASPIRIN EC PO SCH (09:23)
[2017-11-03] MEDS: PREDNISONE PO SCH (09:23)
[2017-11-03] MEDS: GLUCOPHAGE PO SCH ×2 (09:23→17:27)
[2017-11-03] MEDS: PLAVIX PO SCH (09:24)
[2017-11-03] MEDS: ZOCOR PO SCH (09:24)
[2017-11-03] MEDS: BALANCED B-100 PO SCH (09:24)
[2017-11-03] MEDS: TENORMIN PO SCH (09:27)
[2017-11-03] MEDS: TAMIFLU PO SCH ×2 (09:27→20:13)
[2017-11-03] MEDS: NORVASC PO SCH (09:27)
[2017-11-03] MEDS: SOLU-MEDROL 125 MG IVP SCH ×2 (09:28→21:14)
[2017-11-03] MEDS: ZESTRIL PO SCH (09:28)
[2017-11-03] MEDS: LOVENOX SUBCUT SCH (09:29)
[2017-11-03] MEDS: BUSPAR PO SCH (17:28)
[2017-11-03] MEDS: IMIPRAMINE HCL PO SCH (17:35)
[2017-11-04] MEDS: DUONEB NEB SCH ×4 (04:15→22:19)
[2017-11-04] MEDS: LASIX TAB PO SCH (05:46)
[2017-11-04] MEDS: ROCEPHIN 1 GM in SODIUM CHLORIDE 50 ML IV SCH (08:19)
[2017-11-04] MEDS: LOVENOX SUBCUT SCH (08:19)
[2017-11-04] MEDS: SPIRIVA IH SCH (08:19)
[2017-11-04] MEDS: TENORMIN PO SCH (08:21)
[2017-11-04] MEDS: BALANCED B-100 PO SCH (08:21)
[2017-11-04] MEDS: PLAVIX PO SCH (08:21)
[2017-11-04] MEDS: TAMIFLU PO SCH ×2 (08:21→20:55)
[2017-11-04] MEDS: ASPIRIN EC PO SCH (08:21)
[2017-11-04] MEDS: GLUCOPHAGE PO SCH ×2 (08:21→18:08)
[2017-11-04] MEDS: ZOCOR PO SCH (08:21)
[2017-11-04] MEDS: ZESTRIL PO SCH (08:21)
[2017-11-04] MEDS: NORVASC PO SCH (08:22)
[2017-11-04] MEDS: SOLU-MEDROL 125 MG IVP SCH ×2 (08:22→20:54)
[2017-11-04] MEDS: PHENERGAN WITH CODEINE 6.25/10 MG/5 ML PO SCH ×2 (12:25→20:55)
[2017-11-04] MEDS: BUSPAR PO SCH (18:08)
[2017-11-04] MEDS: IMIPRAMINE HCL PO SCH (18:10)
[2017-11-05] MEDS: DUONEB NEB SCH ×4 (04:12→23:17)
[2017-11-05] MEDS: LASIX TAB PO SCH (05:53)
[2017-11-05] MEDS: LOVENOX SUBCUT SCH (09:24)
[2017-11-05] MEDS: ROCEPHIN 1 GM in SODIUM CHLORIDE 50 ML IV SCH (09:24)
[2017-11-05] MEDS: ASPIRIN EC PO SCH (09:24)
[2017-11-05] MEDS: ZOCOR PO SCH (09:24)
[2017-11-05] MEDS: SPIRIVA IH SCH (09:24)
[2017-11-05] MEDS: NORVASC PO SCH (09:24)
[2017-11-05] MEDS: SOLU-MEDROL 125 MG IVP SCH ×2 (09:25→20:35)
[2017-11-05] MEDS: TAMIFLU PO SCH ×2 (09:25→20:43)
[2017-11-05] MEDS: BALANCED B-100 PO SCH (09:25)
[2017-11-05] MEDS: TENORMIN PO SCH (09:25)
[2017-11-05] MEDS: PHENERGAN WITH CODEINE 6.25/10 MG/5 ML PO SCH ×2 (09:25→20:43)
[2017-11-05] MEDS: ZESTRIL PO SCH (09:25)
[2017-11-05] MEDS: PLAVIX PO SCH (09:26)
[2017-11-05] MEDS: GLUCOPHAGE PO SCH ×2 (09:26→17:38)
--- NOTE | 2017-11-05 13:13 | DI ---
EXAM: Two views of the chest. History: Short of breath Comparison: Chest CT 11/02/2017 Findings: Heart size is within normal limits. No pneumothorax. Mild bibasilar subsegmental atelect asis or infiltrate probably improved compared to the prior chest CT. No developing opacities. No ap preciable pleural fluid and no pneumothorax. No acute osseous abnormalities. Impression: Mild bibasilar subsegmental atelectasis or pneumonia is probably slightly improved kelsey red to the prior study. No developing infiltrates.
--- NOTE | 2017-11-05 14:42 | PN ---
DATE OF SERVICE: 11/03/17 SUBJECTIVE: The patient was admitted from the office yesterday for the COPD exacerbation and pneumonia, bibasilar. CT of chest did show the bronchial wall thickening and mucosa plugging within the lower lungs with mild bibasilar lung infiltration compatible with infection and inflammatory processes. Bilateral pneumonia with breathing some better, still coughing and congested. REVIEW OF SYSTEMS: CONSTITUTIONAL: No fever, no chills. HEENT: Normal. ENDOCRINE: No weight gain, no weight loss. CVS: No angina symptoms. No CHF symptoms. No palpitations. No atypical chest pain for CAD. No shortness of breath. No PND, no orthopnea. RESPIRATORY: No cough, no hemoptysis. GI: No nausea, no vomiting. No abdominal pain. : No hematuria. No polyuria. MUSCULOSKELETAL: No joint swelling. PSYCHIATRIC: Not anxious. No depression. No suicidal thoughts. No homicidal thoughts. SKIN: Intact. No rash. PHYSICAL EXAMINATION: V/S: Blood pressure 142/77, respiratory rate 18, heart rate 86, temperature 98.4 , saturation 92 on 2 liters. HEENT: Normocephalic, atraumatic. Mucosa dry. NECK: Supple. No JVD, no carotid bruit. No lymphadenopathy. LUNGS: Bilateral entry is decreased and basilar crackles. No rales or rhonchi. HEART: S1, S2 normal. No S3. No murmur, gallop or regurgitation. ABDOMEN: Soft, nontender. Bowel sounds active. No rigidity. No rebound or guarding. No CVA tenderness. EXTREMITIES: No clubbing, cyanosis or pedal edema. MUSCULOSKELETAL: No joint swelling. NEUROLOGIC: Awake, alert, oriented times three. No focal deficit. LYMPHATIC: No lymph nodes palpable. SKIN: Intact. ASSESSMENT: 1. COPD exacerbation secondary to pneumonia bibasilar 2. Dehydration 3. History of hypertension 4. Carotid endarterectomy 5. Dyslipidemia 6. Sleep apnea 7. Flu A positive. PLAN: 1. Continue the Tamiflu 2. Rocephin 1 gram daily 3. DUO NEBS 4. Lovenox 5. Lasix 6. Plavix 7. Daily I&O's TIME SPENT: More than 30 minutes MTDD
[2017-11-05] MEDS: BUSPAR PO SCH (17:38)
[2017-11-05] MEDS: IMIPRAMINE HCL PO SCH (17:38)
[2017-11-05] MEDS ORDERED: SOLU-MEDROL 125 MG IM STA (20:33)
[2017-11-05] MEDS ORDERED: CATAPRES PO STA (22:53)
[2017-11-06] MEDS: DUONEB NEB SCH ×2 (04:32→11:20)
[2017-11-06 05:23] VITALS: BP 140/64; TEMP 97.4
[2017-11-06] MEDS: LASIX TAB PO SCH (05:55)
[2017-11-06] MEDS: SOLU-MEDROL 125 MG IVP SCH ×2 (08:45→10:01)
[2017-11-06] MEDS: SPIRIVA IH SCH (08:45)
[2017-11-06] MEDS: LOVENOX SUBCUT SCH (08:45)
[2017-11-06] MEDS: ROCEPHIN 1 GM in SODIUM CHLORIDE 50 ML IV SCH ×2 (08:45→10:00)
[2017-11-06] MEDS: PLAVIX PO SCH (08:46)
[2017-11-06] MEDS: ZESTRIL PO SCH (08:46)
[2017-11-06] MEDS: TAMIFLU PO SCH (08:46)
[2017-11-06] MEDS: PHENERGAN WITH CODEINE 6.25/10 MG/5 ML PO SCH (08:46)
[2017-11-06] MEDS: ZOCOR PO SCH (08:46)
[2017-11-06] MEDS: BALANCED B-100 PO SCH (08:46)
[2017-11-06] MEDS: GLUCOPHAGE PO SCH (08:46)
[2017-11-06] MEDS: NORVASC PO SCH (08:46)
[2017-11-06] MEDS: TENORMIN PO SCH (08:46)
[2017-11-06] MEDS: ASPIRIN EC PO SCH (08:46)
--- NOTE | 2017-11-18 10:40 | PN ---
DATE OF SERVICE: 11/04/17 SUBJECTIVE: The patient is still coughing with congestion and not able to get much phlegm. No fever or chills. REVIEW OF SYSTEMS: CONSTITUTIONAL: No fever, no chills. HEENT: Normal. ENDOCRINE: No weight gain, no weight loss. CVS: No angina symptoms. No CHF symptoms. No palpitations. No atypical chest pain for CAD. No shortness of breath. No PND, no orthopnea. RESPIRATORY: Cough and congestion, no hemoptysis. GI: No nausea, no vomiting. No abdominal pain. : No hematuria. No polyuria. MUSCULOSKELETAL: No joint swelling. PSYCHIATRIC: Not anxious. No depression. No suicidal thoughts. No homicidal thoughts. SKIN: Intact. No rash. PHYSICAL EXAMINATION: V/S: Blood pressure 138/70, respiratory rate 20, heart rate 80, temperature 98.8 , saturation 96 on 3 liters. HEENT: Normocephalic, atraumatic. Mucosa dry. Pallor positive. No icterus. NECK: Supple. No JVD, no carotid bruit. No lymphadenopathy. LUNGS: Decreased basilar crackles. No rales or rhonchi. HEART: S1, S2 normal. No S3. No murmur, gallop or regurgitation. ABDOMEN: Soft, nontender. Bowel sounds active. No rigidity. No rebound or guarding. No CVA tenderness. EXTREMITIES: No pedal edema. No clubbing or cyanosis MUSCULOSKELETAL: No joint swelling. NEUROLOGIC: Awake, alert, oriented times three. No focal deficit. LYMPHATIC: No lymph nodes palpable. SKIN: Intact. LABS: White count 18.40, hemoglobin 13.1, hematocrit 38.7, platelet count 483, sodium 137, potassium 3.4, chloride 100, bicarb 25, BUN 24, creatinine 0.83, glucose 144. ASSESSMENT: 1. CHRONIC OBSTRUCTIVE PULMONARY DISEASE EXACERBATION SECONDARY TO PNEUMONIA 2. INFLUENZA A POSITIVE 3. DEHYDRATION 4. HYPERTENSION 5. DYSLIPIDEMIA 6. CAROTID ENDARTERECTOMY ON THE LEFT SIDE 7. HISTORY OF NICOTINE USE PLAN: 1. Continue the Rocephin, Phenergan with Codeine, Lovenox for the DVT prophylaxis and DuoNebs. TIME SPENT: More than 35 minutes MTDD
--- NOTE | 2017-11-18 10:59 | DS ---
DATE OF SERVICE: 11/06/17 FINAL DIAGNOSIS: 1. CHRONIC OBSTRUCTIVE PULMONARY DISEASE EXACERBATION SECONDARY TO BILATERAL PNEUMONIA 2. INFLUENZA A POSITIVE 3. DEHYDRATION 4. HYPERTENSION 5. DYSLIPIDEMIA 6. PERIPHERAL ARTERIAL DISEASE 7. CAROTID ENDARTERECTOMY ON THE LEFT SIDE 8. HISTORY OF NICOTINE USE 9. CHRONIC OBSTRUCTIVE PULMONARY DISEASE OXYGEN DEPENDENT 10. ANXIETY 11. 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 HISTORY OF TONSILLECTOMY, CATARACT SURGERY, TUBAL LIGATION, APPENDECTOMY PLAN: 1. Discharge the patient home. 2. Prednisone 10 mg twice a day for 5 days. 3. Keflex 500 mg three times a day for 5 days. 4. Phenergan with Codeine. 5. Continue the rest of the home medications; ProAir, Norvasc, Aspirin, Atenolol, BuSpar, Plavix, Lasix, Imipramine, Combivent, Lisinopril, Metformin, Prednisone, Simvastatin, Vitamin B. 6. Diet: Cardiac and healthy diet. 7. Activity: As much as tolerated. DISEASE SPECIFIC EDUCATION: About the pneumonia, COPD and the pneumonia risk and needing the pneumonia vaccination, dehydration, fluid therapy was discussed. HOSPITAL COURSE: Manju Rollins, who was initially seen at the [facility] for COPD exacerbation and bronchitis, was found to have flu A. She was started on the Tamiflu and Prednisone, but within two days the patient's condition got worse. She was more short of breath. She came to the office and at that time the patient was admitted to the hospital. CT of the chest showed the bilateral basilar infiltrates. ABG showed the pH 7.493, PCO2 34.5, PO2 74. She was started on antibiotics, steroids and breathing treatments. Rocephin was given at 1 gram daily. Lovenox for the DVT prophylaxis. DuoNebs. Tamiflu continued and Solu-Medrol 80 mg every 12 hours. Gradually the patient was feeling better. She still was having a lot of coughing with yellow thick phlegm and shortness of breath. Gradually improving. Repeat chest x-ray was done on 11/05 and still showed the bilateral basilar infiltrates and pneumonia, but clinically the patient has improved a lot so the patient is being discharged to home today and explained about the medication compliance and to finish the antibiotics and do not get exposure to smoke. TIME SPENT: MORE THAN 35 MINUTES MTDD
== END 2017-11-06 11:23 | disposition home or self-care (01) | DRG 194 ==
LOC: MEDSURG A 12:27
PROVIDERS: ADMIT Emergency Medicine; ATTEND Emergency Medicine
DX: J09.X2 Influenza due to identified novel influenza A virus with other respiratory manifestations (principal); J44.1 Chronic obstructive pulmonary disease with (acute) exacerbation; J18.9 Pneumonia, unspecified organism; E86.0 Dehydration; I10 Essential (primary) hypertension; E78.5 Hyperlipidemia, unspecified; I73.9 Peripheral vascular disease, unspecified; F41.9 Anxiety disorder, unspecified; M19.90 Unspecified osteoarthritis, unspecified site; M47.9 Spondylosis, unspecified; G47.30 Sleep apnea, unspecified; Z98.890 Other specified postprocedural states; Z87.891 Personal history of nicotine dependence; Z99.81 Dependence on supplemental oxygen; Z79.899 Other long term (current) drug therapy
CPT/HCPCS: 36415; 80053; 81001; 82550; 82803; 83880; 84484; 85007; 85025; 87070; 93005; 93010; 94640

== ENCOUNTER 2018-01-26 13:08 | Outpatient (CLI) ==
--- NOTE | 2018-01-27 09:29 | MAMMO ---
EXAM: Digital screening mammogram with tomosynthesis HISTORY: Screening COMPARISON: 07/21/2016 FINDINGS: Digital MLO and CC views of the right and left breast were performed. Tomosynthesis was performed. Computer aided detection utilized. There are scattered fibroglandular densities. There a re benign bilateral calcifications. There is no evidence for mass, asymmetry, distortion, or suspicio us calcifications in either breast. IMPRESSION: 1. No evidence of malignancy in the right or left breast. 2. Annual screening mammogram is recommended in one year. BIRADS category 2, benign
== END 2018-01-26 13:09 | disposition home or self-care (01) ==
LOC: RAD 13:08
PROVIDERS: ATTEND Emergency Medicine
DX: Z12.31 Encounter for screening mammogram for malignant neoplasm of breast (principal)
CPT/HCPCS: 77067

== ENCOUNTER 2018-04-13 14:57 | Outpatient (CLI) | END 2018-04-13 14:58 | disposition home or self-care (01) | LOC: RHC-LAB 14:57 | PROVIDERS: ATTEND Emergency Medicine | DX: E11.9 Type 2 diabetes mellitus without complications (principal); F33.1 Major depressive disorder, recurrent, moderate; M15.0 Primary generalized (osteo)arthritis; E66.9 Obesity, unspecified; J44.9 Chronic obstructive pulmonary disease, unspecified; E78.5 Hyperlipidemia, unspecified; G47.39 Other sleep apnea; Z98.890 Other specified postprocedural states | CPT/HCPCS: 36415; 80053; 80061; 83036; 84443; 85025 ==

== ENCOUNTER 2018-07-26 16:48 | Outpatient (CLI) | END 2018-07-26 16:49 | disposition home or self-care (01) | LOC: FCC-LAB 16:48 | PROVIDERS: ATTEND Family Medicine | DX: E11.9 Type 2 diabetes mellitus without complications (principal) | CPT/HCPCS: 82043 ==

== ENCOUNTER 2018-10-18 07:00 | Emergency (ER) ==
[2018-10-18 07:07] VITALS: BP 174/76; TEMP 97.9; BMI 29.2
--- NOTE | 2018-10-18 07:31 | ED.PDOC ---
General ED Provider: Dr. NIC QUINN Chief Complaint: Ankle Pain/Injury Stated Complaint: ankle injury left Time Seen by Physician: 07:29 Mode of Arrival: Wheelchair Information Source: Patient Exam Limitations: No limitations Primary Care Provider: EDD WILLIAMSON Nursing and Triage Documentation Reviewed and Agree: Yes Does patient meet sepsis criteria?: No System Inflammatory Response Syndrome: Not Applicable Sepsis Protocol: For patient's 13 years and over: Temp is 96.8 and below OR 101 and greater Pulse >90 BPM Resp >20/minute Acutely Altered Mental Status Are patient's symptoms suggestive of a new infection, such as: -Pneumonia -Skin, Soft Tissue -Endocarditis -UTI -Bone, Joint Infection -Implantable Device -Acute Abdominal Infection -Wound Infection -Meningitis -Blood Stream Catheter Infection -Unknown Musculoskeletal Complaint Exam - Ankle/Foot Complaint/Exam Location of Injury: Reports: Left, Ankle, Foot Mechanism of Injury: Reports: Trauma Onset/Duration: today Symptoms Are: Reports: Still present Onset of Pain: Reports: Immediate Initial Severity: Mild Current Severity: Mild Location: Reports: Discrete Character: Reports: Aching Alleviating: Reports: Rest, Position Aggravating: Reports: Movement Able to Bear Weight: Yes Associated Signs and Symptoms: Denies: Swelling, Redness, Bruising, Fever, Weakness, Numbness, Tingling Gout Risk Factors: Reports: >40 years old Related Surgical History: Reports: None Lower Extremity Findings: Absent: Swelling, Ecchymosis, Abnormal contour, Ligamentous instability Achilles Tendon Abnormality: No Tenderness: Present: Lateral malleolus Differential Diagnosis: Closed Fracture, Sprain, Strain Review of Systems - Review Of Systems Constitutional: Reports: No symptoms Eyes: Reports: No symptoms Ears, Nose, Mouth, Throat: Reports: No symptoms Respiratory: Reports: No symptoms Cardiac: Reports: No symptoms GI: Reports: No symptoms : Reports: No symptoms Musculoskeletal: Reports: Joint pain (ankle) Skin: Reports: No symptoms Neurological: Reports: No symptoms Endocrine: Reports: No symptoms Hematologic/Lymphatic: Reports: No symptoms All Other Systems: Reviewed and Negative Past Medical History - Past Medical History Previously Healthy: Yes Endocrine: Reports: DM 2, Dyslipidemia Cardiovascular: Reports: Hypertension Respiratory: Reports: None Hematological: Reports: None Gastrointestinal: Reports: GERD Genitourinary: Reports: UTI Neuro/Psych: Reports: Anxiety Musculoskeletal: Reports: None Cancer: Reports: None Last Menstrual Period: n/a - Surgical History General Surgical History: Reports: None - Family History Family History: Reports: None - Social History Smoking Status: Current every day smoker Hx Substance Use: No Alcohol Screening: None Physical Exam - Physical Exam Appearance: Well-appearing, No pain distress, Well-nourished Eyes: STEVEN, EOMI, Conjunctiva clear ENT: Ears normal, Nose normal, Oropharynx normal Respiratory: Airway patent, Breath sounds clear, Breath sounds equal, Respirations nonlabored Cardiovascular: RRR, Pulses normal, No rub, No murmur GI/: Soft, Nontender, No masses, Bowel sounds normal, No Organomegaly Musculoskeletal: Normal strength, ROM intact, No edema, No calf tenderness Skin: Warm, Dry, Normal color Neurological: Sensation intact, Motor intact, Reflexes intact, Cranial nerves intact, Alert, Oriented Psychiatric: Affect appropriate, Mood appropriate Critical Care Note - Critical Care Note Total Time (mins): 0 Course - Course Orders, Labs, Meds: Orders Category Date Time Status ANKLE, LEFT MIN 3 VIEWS Stat RADS 10/18/18 07:28 Completed FOOT, LEFT 3 VIEWS Stat RADS 10/18/18 07:28 Completed Vital Signs: Temp Pulse Resp BP Pulse Ox 10/18/18 07:00 97.9 F 105 H 16 174/76 H 98 Departure - Departure Time of Disposition: 08:30 Disposition: HOME SELF-CARE Discharge Problem: Ankle pain Ankle sprain Qualifiers: Encounter type: initial encounter Involved ligament of ankle: unspecified ligament Laterality: left Qualified Code(s): S93.402A - Sprain of unspecified ligament of left ankle, initial encounter Instructions: Ankle Sprain (ED), Ankle Sprain (DC), Arthralgia (ED) Condition: Good Pt referred to PMD for follow-up: Yes IPMP verified?: No Additional Instructions: Please call your Family Physician as soon as possible to schedule a follow-up appointment. Prescriptions: Hydrocodone/Acetaminophen [[place] 10-325 Tablet] 1 each PO Q8HR #7 tablet Allergies/Adverse Reactions: Allergies varenicline [From Chantix] Adverse Reaction (Mild, Verified 10/18/18 07:03) Nausea, Vomiting Home Medications: Ambulatory Orders Aspirin/Calcium Carbonate/Mag [Aspirin Buffered 325 mg Tab] 325 mg PO DAILYWM Furosemide [Lasix] 20 mg PO QDAC 01/19/17 Simvastatin 20 mg PO DAILY 01/19/17 Tiotropium [place] [Spiriva] 18 mcg IH DAILY 01/19/17 Vitamin B Complex 1 each PO DAILY 06/16/17 Clopidogrel Bisulfate [Plavix] 75 mg PO DAILY 09/01/17 Hydrocodone/Acetaminophen [[place] 10-325 Tablet] 1 each PO Q8HR #7 tablet
--- NOTE | 2018-10-18 07:48 | DI ---
EXAM: Radiographs, left ankle HISTORY: Initial presentation for left ankle trauma. COMPARISON: 10/19/2011. TECHNIQUE: Three views. FINDINGS: Bone mineralization is decreased. There is no fracture or dislocation. The joint spaces are maintained. Mild lateral soft tissue swelling is seen. Atherosclerotic calcifications present. IMPRESSION: No fracture or dislocation.
--- NOTE | 2018-10-18 07:49 | DI ---
EXAM: Radiographs, left foot HISTORY: Initial presentation for left foot trauma. COMPARISON: None available. TECHNIQUE: Three views. FINDINGS: Bone mineralization is decreased. There is no fracture or dislocation. The joint spaces are maintained. Mild lateral ankle soft tissue swelling is seen. Atherosclerotic calcifications pre sent. IMPRESSION: No fracture or dislocation.
== END 2018-10-18 08:18 | disposition home or self-care (01) ==
LOC: ED 07:00
DX: S93.402A Sprain of unspecified ligament of left ankle, initial encounter (principal); X50.1XXA Overexertion from prolonged static or awkward postures, initial encounter; F17.210 Nicotine dependence, cigarettes, uncomplicated
CPT/HCPCS: 99283

== ENCOUNTER 2019-01-14 11:35 | Outpatient (CLI) | payer OTHER ==
--- NOTE | 2019-01-14 11:57 | DI ---
EXAM: Three views of the left foot. History: Left foot pain. Comparison: Left foot radiograph 10/18/2018 Findings: No acute fracture or dislocation. Joint spaces are relatively preserved. Stable tiny ent hesiophyte at the insertion of the Achilles tendon. No radiopaque foreign bodies. Impression: No acute osseous abnormality. No change compared to the prior study.
== END 2019-01-14 11:36 | disposition home or self-care (01) ==
LOC: RAD 11:35
PROVIDERS: ATTEND Family Medicine
DX: M79.672 Pain in left foot (principal); E53.8 Deficiency of other specified B group vitamins; G57.92 Unspecified mononeuropathy of left lower limb
CPT/HCPCS: 36415; 82607; 82746

== ENCOUNTER 2019-02-14 10:58 | Outpatient (CLI) | END 2019-02-14 10:59 | disposition home or self-care (01) | LOC: LAB 10:58 | PROVIDERS: ATTEND Nurse Practitioner Family | DX: R73.9 Hyperglycemia, unspecified (principal); I10 Essential (primary) hypertension; E53.8 Deficiency of other specified B group vitamins; E78.5 Hyperlipidemia, unspecified | CPT/HCPCS: 36415; 80053; 80061; 82607; 83036; 85025 ==